=== PATIENT | male | born 1930 | race Caucasian/White ===

== ENCOUNTER 2017-01-20 13:48 | Inpatient (IN) | payer MEDICARE, BC ==
[~2017-01-20] VITALS: Ht 177.8 cm; Wt 93.6 kg
--- NOTE | ~2017-01-20 | CON ---
PATIENT'S NAME: CAL WAGNER [facility] AGE: 86 Y [address] ROOM: [address] [address] LOCATION: GICU ADMIT DATE: 01/20/2017 Consultation DISCHARGE DATE: FAMILY PHYSICIAN: PHYSICIAN, UNKNOWN ATTENDING PHYSICIAN: MAINE ENRIQUEZ DATE OF CONSULTATION: 01/20/2017 REFERRING PHYSICIAN: HEATHER FARIA REFERRING PHYSICIAN: Maine Enriquez MD REASON FOR CONSULTATION: LOPEZ on CKD, stage 4. HISTORY OF PRESENT ILLNESS: An 86-year-old gentleman with a history of hypertension; hyperlipidemia; coronary artery disease with multiple PCIs; heart failure with preserved ejection fraction; atrial fibrillation, on long-term anticoagulation; CKD, stage 4 with baseline creatinine around 3.4, currently living in a [facility] who presented to the [facility] with heart failure and shock. The patient's creatinine was found to be 6.8. For further evaluation and management, patient has been transferred to our hospital. Nephrology consultation has been called for the above-mentioned reason. As per the records from the outside facility, he has had an episode of [facility]responsiveness at the [facility]. Of note, one week ago, he has had a similar episode where he had a fall and had a head and facial injury. CT scan was unremarkable at that point. Today during his presentation at [facility], he was found to be hyperkalemic with a potassium of 5.8, and creatinine of 6.8. He was making minimal urine at that time, even after placement of Purcell catheter. However, he did not get significant amount of fluid boluses over there. He has a complex and chronic medical history as mentioned above, especially cardiac history with history of heart failure, they were reluctant to give any further fluid challenge. Before my evaluation, the patient did have an echocardiogram done which shows significant hypertrophic cardiomyopathy, LV ejection fraction is 20%, but, however, patient has predominantly RV failure. The IVC could not visualize properly due to bowel gas and so the volume status could not be determined, however, we do believe that the patient was intravascularly dehydrated, although patient noted to have at least 1 to 2+ pitting edema in the bilateral lower extremity with some evidence of bilateral lower extremity cellulitis. The patient although alert and communicative and does not complain of any headache. No chest pain or shortness of breath at this point. No cough, fever, or chills. He did mention that he was having diarrhea for the last couple of days. No orthopnea or PND. PAST MEDICAL HISTORY: 1. Hypertension. 2. Hyperlipidemia. 3. Hypothyroidism. 4. Coronary artery disease with PCI. 5. Heart failure with preserved ejection fraction. 6. Chronic kidney disease, stage 4 with creatinine in the mid 3 range.PATIENT'S NAME: CAL WAGNER [facility] AGE: 86 Y [address] ROOM: [id number] [place], [place] [address] LOCATION: [facility] ADMIT DATE: 01/20/2017 Consultation DISCHARGE DATE: FAMILY PHYSICIAN: PHYSICIAN, UNKNOWN ATTENDING PHYSICIAN: MAINE ENRIQUEZ A REVIEW OF SYSTEMS: GENERAL: No fever. No chills or rigor. HEENT: No sore throat. No sinus congestion. Had a fall a week before with some facial and head trauma. CT scan was negative. Need to be sutured, still has some black eye on the right side. CVS: No chest pain. No exertional shortness of breath. Some leg swelling. RESPIRATORY: No shortness of breath. No cough. No wheezing. GENITOURINARY: No pain with urination. No increased frequency. No nocturia. GASTROINTESTINAL: No abdominal pain. No abdominal distention. No nausea or vomiting, but has significant diarrhea for the last couple of days as mentioned in the HPI. NEUROLOGIC: No weakness. No seizures. SKIN: No rash. No itching. ALLERGIES: No seasonal allergy. No hayfever. ENDOCRINE: No heat intolerance. No cold intolerance. PSYCHIATRIC: No sadness. No crying spells. No history of panic attack. FAMILY HISTORY: Two sisters had myocardial infarction. Father had COPD. No history of kidney failure or dialysis in the family. SOCIAL HISTORY: No history of smoking, alcohol, or drug use. Currently living in a nursing with the assisted living facility. MEDICATIONS: As per the chart. PAST SURGICAL HISTORY: Multiple PCIs in the past as mentioned in the HPI. PHYSICAL EXAMINATION: VITAL SIGNS: Blood pressure is 60 to 70 over 40, heart rate in 50s, afebrile, respiratory rate 16 to 18, and saturating 94% on 3 to 4 L of oxygen on room air. Currently afebrile. GENERAL: Not in apparent distress. HEAD: Moist mucous membranes. Bilateral PERRLA. Black eye on the right side, has a facial trauma with suturing with a recent fall, EOMI. NECK: No JVD, thyromegaly, or lymphadenopathy. CVS: S1 and S2 normal, regular rate and rhythm. No murmur, rub, gallop. CHEST: Bilateral air entry equal. No wheezes or rales. ABDOMEN: Soft, nontender, nondistended. Bowel sounds present. EXTREMITIES: No cyanosis, clubbing, jaundice. 1+ pitting edema in bilateral lower extremity with some erythema and possibly stasis dermatitis versus cellulitis. MUSCULOSKELETAL: No limitation of range of motion. SKIN: No pallor, cyanosis, icterus. 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 No gross findings.PATIENT'S NAME: CAL WAGNER [facility] AGE: 86 Y [address] ROOM: [place] [address] LOCATION: [facility] ADMIT DATE: 01/20/2017 Consultation DISCHARGE DATE: FAMILY PHYSICIAN: PHYSICIAN, UNKNOWN ATTENDING PHYSICIAN: MAINE ENRIQUEZ LABORATORY DATA: Laboratory Evaluation: ABG; pH of 7.41, pCO2 of 45, pO2 of 94, and bicarbonate of 28.5. Troponin is 2.690. CBC; WBC 15.7, hemoglobin 12.9, and platelets of 153,000. Chemistry; serum sodium 121, potassium 5.3, chloride 79, bicarbonate 26, BUN 170, creatinine 6.9, glucose 104, and albumin 3.5. A1c is 7.1. INR is 3.14. Urinalysis; specific gravity of 1.010, pH of 6, leukocyte 2+, nitrite positive, protein 3+, ketone +, urobilinogen +, blood 250, wbc's 10-20, rbc's full field, epithelial cells 5-10, and a few bacteria. ASSESSMENT AND PLAN: 1. Acute kidney injury on chronic kidney disease, stage 4, possibly secondary to acute tubular necrosis with shock, however, the character of the shock is uncharacterized, possibly cardiogenic. The patient appears to be intravascularly dry. We have a detailed discussion with Cardiology and the primary care team. We will try to gently volume expand him with both crystalloids and colloid. We will give normal saline at the rate of 100 mL/h as well as we will give albumin 25% at 100 mL every 4 hourly. Once we get an adequate volume expansion, we may hit him with modest dose of diuretic with Bumex 2 mg bolus and metolazone 10, however, there is a risk for development of hypotension. We would like to see how his tubular response is with modest dose of diuretic after volume expansion. However, with significant right ventricular failure and left ventricular failure, there is very poor forward flow and it would be difficult to increase the left ventricular function and left ventricular output other than using dopamine and dobutamine to improve cardiac contractility. The patient is currently not making much urine. We will send urinalysis and urine lytes including sodium, potassium, creatinine, and osmolality. We may do a renal ultrasound to rule out any obstructive etiology, although less likely. If the patient does not make a significant amount of urine, we will probably need renal placement therapy in the next 12 to 24 hours. 2. Shock, which is uncharacterized, possibly cardiogenic, especially in the context of a very low cardiac output from both left ventricle and right ventricle, Cardiology is on board. Sepsis cannot be ruled out. The patient may have some evidence of cellulitis in the bilateral lower extremities. I will defer the management of antibiotic as per the primary team. 3. Chronic kidney disease, stage 4. Possibly from hypertensive nephrosclerosis or vascular disease along with some age-related glomerular filtration rate loss. The patient follows with Dr. Washington. Baseline creatinine in the mid 3 range. We will see the acute kidney injury at this point, and the patient will probably need some dialysis to go over the hump and may follow up with Dr. Washington in the future. 4. Hypertension. Hold all antihypertensive regimen, currently patient is significantly hypertensive and currently on dopamine and dobutamine to improve cardiac contractility as well as to support hemodynamics.PATIENT'S NAME: CAL WAGNER [facility] AGE: 86 Y [address] ROOM: [id number] [place], [place] [address] LOCATION: [facility] ADMIT DATE: 01/20/2017 Consultation DISCHARGE DATE: FAMILY PHYSICIAN: PHYSICIAN, UNKNOWN ATTENDING PHYSICIAN: MAINE ENRIQUEZ 5. Atrial fibrillation, on long-term anticoagulation with supratherapeutic INR. INR is 3.1. The patient may need dialysis catheter in the next 12 hours. Had significant amount of bleeding during the placement of triple lumen venous catheter. May need couple of FFPs to correct the INR before we put the dialysis line, and get continuous renal replacement therapy versus dialysis depending on the hemodynamic status. Thank you for allowing me to participate in this patient's care. We will closely monitor the patient's progress along with you. HEATHER FARIA MD /modl /[id number] d: 01/21/17 1308 t: 01/22/17 1620, CONSULTATION REPORT
--- NOTE | ~2017-01-20 | HP ---
PATIENT'S NAME: CAL WAGNER [facility] AGE: 86 Y [address] ROOM: [place] [address] LOCATION: GICU ADMIT DATE: 01/20/2017 History & Physical DISCHARGE DATE: FAMILY PHYSICIAN: PHYSICIAN, UNKNOWN ATTENDING PHYSICIAN: NORIS ESPINOSA DATE OF SERVICE: CHIEF COMPLAINT: Unresponsiveness. HISTORY OF PRESENT ILLNESS: An 86-year-old gentleman, resident of a Nursing Facility with a past medical history of chronic kidney disease stage 4, heart failure congestive in nature, atrial fibrillation on long-term anticoagulation, and coronary artery disease with a previous stenting, presented through the outside facility today with an episode of unresponsiveness at the [facility]. Of note, one week ago, he had a similar episode where he fell and hit his head, and had a facial trauma. A CAT scan was done at that point, which was unremarkable. Today, he was found to be hyperkalemic and was transferred here for further medical care. On my encounter here, he states that he is doing okay. He does not complain of any headache, any trouble with the eyes, any trouble swallowing, any chest pain, or any shortness of breath. He does endorse having some cough. He does not endorse having abdominal pain, but his significant other did mention he having diarrhea for last couple of days. He denied any PND, orthopnea, or leg swelling at this point. He denied any fever or chills. REVIEW OF SYSTEMS: All other systems were reviewed, and were negative except what is mentioned in the HPI. PAST MEDICAL HISTORY: Significant for 1. Chronic kidney disease, stage 4. 2. Heart failure with preserved ejection fraction. 3. Atrial fibrillation, on oral anticoagulation. 4. Hypertension. 5. Hyperlipidemia. 6. Hypothyroidism. 7. Coronary artery disease with previous stenting done in the past. FAMILY HISTORY: Two sisters had myocardial infarction. Father had COPD. SOCIAL HISTORY: PATIENT'S NAME: CAL WAGNER [facility] AGE: 86 Y [address] ROOM: [address] [address] LOCATION: GICU ADMIT DATE: 01/20/2017 History & Physical DISCHARGE DATE: FAMILY PHYSICIAN: PHYSICIAN, UNKNOWN ATTENDING PHYSICIAN: KHALID,HAMM A Never a smoker or drug abuse. MEDICATIONS: Medications are being reconciled right now. PHYSICAL EXAMINATION: VITAL SIGNS: On my encounter, his blood pressure was 68/40, heart rate was 58, afebrile, respiratory rate was 16, and saturating 94% on 3 L to 4 L of oxygen on room air. GENERAL: He was in no acute distress, alert and oriented x3, and complaining of being hungry. HEENT: Head did show right orbital bruises and recent stitches. Oropharynx showed moist mucous membranes. CARDIOVASCULAR: Showed irregular and variable S1 and normal S2. NECK: Due to neck obesity, could not estimate JVD. RESPIRATORY: No crackles were heard on physical examination. ABDOMEN: Soft, nontender, and nondistended. Bowel sounds were present. EXTREMITIES: Did reveal trace extremity edema with stasis dermatitis and could possibly be erythema of the leg as well. NEUROLOGICAL: No motor or sensory deficit was noted. PSYCHIATRIC: Normal affect, mood, and speech. LABORATORY WORKS AND DIAGNOSTIC STUDIES: CT of head from the outside facility did not show any acute findings. Labs showed a white count of 14, hemoglobin of 11, and platelets of 138. Sodium was 121, potassium was 5.8, chloride was 83, bicarb was 28, BUN was 177, and creatinine was 6.8. BNP of 2030. Troponins were 2.7. Alkaline phosphatase of 116; AST and ALT were respectively 53 and 34. ASSESSMENT: 1. Shock, undifferentiated at this time. It could be cardiogenic versus septic. Hypovolemic shock is also under consideration. 2. Hyperkalemia. 3. Hyponatremia. 4. Acute kidney injury on chronic kidney disease, stage 4. 5. Atrial fibrillation, on oral anticoagulation with INR of 3.1. 6. History of coronary artery disease and congestive heart failure, unknown ejection fraction. 7. Acute hypoxic respiratory failure. PLAN: We have admitted this patient to the Intensive Care. We have started the sepsis protocol, but without aggressive volume resuscitation. We will consider gentle and cautious hydration of this patient. Saturations will be monitored. We will get a chest x-ray and a full echocardiography to evaluate PATIENT'S NAME: CAL WAGNER [facility] AGE: 86 Y [address] ROOM: [place] [address] LOCATION: [facility] ADMIT DATE: 01/20/2017 History & Physical DISCHARGE DATE: FAMILY PHYSICIAN: PHYSICIAN, UNKNOWN ATTENDING PHYSICIAN: NORIS ESPINOSA his intravascular hemodynamics status. Cardiology consult will be placed as well for the elevated enzymes. Nephrology consultation has been made. We will repeat the potassium now. He has already been given two amps of D50 and 10 units of regular insulin. Hyponatremia will be monitored with the serial BMPs. We will hold the oral anticoagulation at this point in anticipation of a central line placement and any further procedures. I discussed the case personally with Dr. Santiago and son of the patient, Mr. Hayes in [place] over the phone. I discussed the current condition, prognosis, and answered questions and addressed concerns. I spent 90 minutes in providing care to this patient. Fifty percent of the time was spent in providing direct patient care including history and physical, limited echocardiography, as well as answering questions. The patient is full code per power of associate attorney. NORIS ESPINOSA MD KP/kendalll /[id number] D: [id number] T: [id number] HISTORY & PHYSICAL
--- NOTE | ~2017-01-20 | OR ---
PATIENT'S NAME: CAL WAGNER [facility] AGE: 86 Y [address] ROOM: [place] [address] LOCATION: GICU ADMIT DATE: 01/20/2017 OR/Procedure Report DISCHARGE DATE: FAMILY PHYSICIAN: PHYSICIAN, UNKNOWN ATTENDING PHYSICIAN: MAINE ENRIQUEZ SURGEON: Maine Enriquez MD FOUR SLIDE OPERATOR: DATE OF PROCEDURE: 01/20/2017 PROCEDURE: Arterial line placement. INDICATION: Hemodynamic monitoring, given shock. DESCRIPTION OF PROCEDURE: Informed consent was obtained from the patient's son and the patient himself. Time-out was taken and the right radial artery was selected for catheterization. The patient was prepped in sterile fashion and local anesthesia was obtained with a lidocaine 1% subdermally. Arterial needle was advanced into the radial artery with the return of the pulsatile flow. Guidewire was advanced and arterial catheter was advanced over the guidewire and needle was removed. No immediate complications were noted. MAINE ENRIQUEZ MD KP/modl /[id number] d: 01/21/17 0047 t: 01/21/17 1108, OPERATIVE SUMMARY
--- NOTE | ~2017-01-20 | CON ---
PATIENT'S NAME: CAL HEWITT [facility] AGE: 86 Y [address] ROOM: [address] [address] LOCATION: GICU ADMIT DATE: 01/20/2017 Consultation DISCHARGE DATE: FAMILY PHYSICIAN: PHYSICIAN, UNKNOWN ATTENDING PHYSICIAN: NORIS ESPINOSA DATE OF CONSULTATION: 01/20/2017 REFERRING PHYSICIAN: HEATHER FARIA Patient of Dr. Davenport. HISTORY OF PRESENT ILLNESS: Mr. Hewitt is an 86-year-old male patient who was transferred to the intensive care unit from the intermediate where he has been getting progressively less responsive over the last few days. He had a fall about 7 days back which was evaluated with a CAT scan. Again, his significant other who is with him says that he is a lot less responsive today. He was found to have a sodium in the low 120s, creatinine in the 7 range and his BUN was about 170. His potassium was significantly elevated as well at least 5.6 when he came in. This seemed to be due to fairly high doses of diuretics he has been on for congestive heart failure. The patient usually follows up with [facility] with Dr. Ibarra. He was recently hospitalized within the last month or so in [place] and was fine tuned and was sent home. I do not have any of those records. When he got here, he did have an echo done which shows that he has severe LVH of about wall thickness measuring 2.2 cm at least. There is at least moderate LV dysfunction with an ejection fraction of about 30%. The LV cavity is very small. There is no LVOT obstruction. 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 His EKG upon arrival showed a very wide-complex rhythm and he was in regular sinus rhythm at that time. His heart rate was in the 50s. He was hypotensive, and at one point, his blood pressure was down to the 60s apparently. He denies any chest pains. He is short of breath and wheezy. His chest x-ray is relatively clear. Consistent with significant RV dysfunction as well. He does have a lot of edema. He was on oxygen supplementation with the mask with reasonably good saturations. There is no history of syncope or any pauses. He does have a history of PAF in the past and has been on amiodarone as well. There is history of hyperlipidemia, hypertension, chronic systolic and diastolic congestive heart failure, history of renal artery stenosis. He does not appear as if he is diabetic. He is not a smoker at least recently. There is no prior history of GA even though he has a history of stent to one PATIENT'S NAME: CAL HEWITT [facility] AGE: 86 Y [address] ROOM: [id number] [place], [place] [address] LOCATION: [facility] ADMIT DATE: 01/20/2017 Consultation DISCHARGE DATE: FAMILY PHYSICIAN: PHYSICIAN, UNKNOWN ATTENDING PHYSICIAN: NORIS ESPINOSA of his obtuse marginals. There is history of congestive heart failure and paroxysmal atrial fibrillation. MEDICATIONS: His medications at intermediate are: 1. Amiodarone 200 mg once a day. 2. Artificial tears. 3. Aspirin 81 mg once a day. 4. Coumadin 2 mg a day. 5. Demadex . 6. Flomax. 7. Lipitor 40 mg a day. 8. Lopressor 100 mg twice a day. 9. Metolazone 5 mg once a day. 10. Potassium chloride 20 mEq once a day. 11. Synthroid 100 mcg once a day. 12. Tylenol 325 mg p.r.n. 13. Uloric 80 mg once a day. 14. Vitamin D3 2000 units a day. ALLERGIES: NO KNOWN DRUG ALLERGIES. PAST MEDICAL HISTORY: 1. Renal disease aggravated by diuretic. 2. Hypothyroidism. 3. Carpal tunnel syndrome right wrist. 4. Right ulnar neuropathy. 5. Polyneuropathy. 6. Renal artery stenosis, venous insufficiency, DJD both knees, DJD left shoulder. 7. Lumbar spinal stenosis. 8. Cognitive impairment and long-term use of anticoagulation. PAST SURGICAL HISTORY: 1. Spinal fusion L1-L5, he had a stent placed. 2. Stent placed to his OM1 in 2014 and repeat catheterization in February 2016 showed mild left nonobstructive coronary disease. SOCIAL HISTORY: The patient is . He is currently living with significant other. 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 He denies abusing alcohol. He is nonsmoker. REVIEW OF SYSTEMS: 1. Positive for generalized weakness. PATIENT'S NAME: CAL HEWITT [facility] AGE: 86 Y [address] ROOM: [place] [address] LOCATION: [facility] ADMIT DATE: 01/20/2017 Consultation DISCHARGE DATE: FAMILY PHYSICIAN: PHYSICIAN, UNKNOWN ATTENDING PHYSICIAN: NORIS ESPINOSA 2. Bruising. 3. Very weak and able to walk only very short distances putting him in functional class III-IV. 4. Nausea. PHYSICAL EXAMINATION: VITAL SIGNS: His blood pressure was in the 90s to low 100s. Initially, he was put on dopamine 2 mcg then discontinued. His heart rate is in the 60s. Respirations 22. Oxygen saturation is okay with the supplemental oxygen. HEENT: Normal. NECK: Supple with no JVD. In fact, JVD is difficult to tell. ABDOMEN: Obese, soft. CHEST: Chest examination reveals bilateral wheezing. His heart sounds are regular at this time and bradycardic with a heart rate in the 50s. EXTREMITIES: Reveal 2+ edema. ASSESSMENT: 1. Left ventricular ejection fraction of 30% with severe left ventricular hypertrophy with left ventricular wall thickness being about 2.2 cm and concentric left ventricular hypertrophy for that matter. 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 2. Congestive heart failure secondary to #1. 3. Right ventricular failure as well. 4. Paroxysmal atrial fibrillation, on Coumadin as well as on amiodarone and beta blockers. RECOMMENDATIONS: We will start him on some dopamine and dobutamine and see how he comes along. Again, I appreciate this opportunity to participate in the care of Mr. Hewitt. MD SALIMA GALLAGHER/constantine /[id number] d: 01/21/17 1235 t: 01/29/17 1030, CONSULTATION REPORT
--- NOTE | ~2017-01-20 | ECHO ---
Transthoracic Echocardiography Report (TTE) Demographics Patient Name CAL WAGNER Date of Study 01/20/2017 Patient Number [id number] Visit Number [id number] Date of 1930 Room Number G6205 Gender Male Number Age 86 year(s) Referring Zoe Melendez Mold Setter Jean Claude Hernandez RVT Physician Physician Interpreting Guillermina Hughes Ventilator Specialist Physician Supervising Ordering Zoe Melendez MD/MLP Physician MD Nurse Stress Hospitality House Supervisor Conclusions Contractility Score Summary Global Left Ventricular Hypokinesis was noted. Summary TDS. Off axis views. The estimated left ventricular ejection fraction is 25-30% with severe diffuse hypokinesia involving all LV segments. Severe concentric left ventricular hypertrophy with the wall thickness measuring 2.5 cm.The LV cavity is small with with obliteration of the apical 1/4 of the LV cavity with systole. Moderately reduced right ventricular function. Mildly dilated right ventricle. The left atrium is mildly dilated by visual assessment. Increased LA pressures. The right atrium is severely dilated. Increased RA pressures. Severe MAC. Mild mitral regurgitation by color Doppler. The aortic valve is mildly sclerotic. There is trivial aortic regurgitation by color Doppler. Trivial tricuspid regurgitation by color Doppler and the pulmonary pressures cannot be confidently commented on Possible pleural effusion. Procedure Type of Study TTE procedure:2D Echocardiogram. Procedure Date Date: 01/20/2017 Start: 05:08 PM Study Location: Inpatient Portable Technical Quality: Limited visualization Indications:Hypotension. Appropriate Use Criteria: 9 Patient Status: STAT HR: 80 bpm BP: 82/50 mmHg M-Mode/2D Measurements LV Diastolic Dimension: 2.38 cm LV Systolic Dimension: 2.04 cm LV Septum Diastolic: 2.56 cm LV PW Diastolic: 2.59 cm AO Root Dimension: 2.9 cm Cardiac Output: 2.94 l/min AV Cusp Separation: 1.4 cm LA volume: 71 ml RV Base: 3.59 cm LVOT: 2 cm RV Mid: 2.98 cm LVOT VTI: 11.7 cm RV Length: 5.67 cm LV Stroke volume: 36.74 ml TDI-S': 5.03 cm/s Doppler Measurements AV Peak Velocity: 0.72 m/s MV Peak E-Wave: 0.93 m/s AV Peak Gradient: 2.08 mmHg AV Mean Gradient: 1 mmHg MV P1/2t: 96 msec LVOT Peak Velocity: 0.64 m/s MV Mean Gradient: 1 mmHg TR Velocity:1.71 m/s TR Gradient:11.7 mmHg A' Lateral Velocity: 0.05 m/s E' Lateral Velocity: 0.03 m/s Findings Left Ventricle Severe concentric left ventricular hypertrophy.Small LV cavity .Severe diffuse hypokinesia.LVEF:25-30%. Right Ventricle Moderately reduced right ventricular function. Mildly dilated right ventricle. Left Atrium Visually mild LA dilatation. Increased LA pressures. Right Atrium The right atrium is severely dilated. Increased RA pressures. IVC not visualized due to poor subcostal window. Mitral Valve Moderate to severe mitral annular calcification. Trace mitral regurgitation by color Doppler. Aortic Valve The aortic valve is moderately sclerotic. There is trivial aortic regurgitation by color Doppler. Tricuspid Valve Mild tricuspid regurgitation by color Doppler. Pulmonic Valve The pulmonic valve is not well visualized. Pericardial Effusion No evidence of pericardial effusion. Miscellaneous Visualized portions of the aortic root and ascending aorta appear normal in size. Pleural Effusion Possible pleural effusion. Contractility Score LV regional wall motion:(0-Non visualized 1-Normal 2-Hypokinesis 3-Akinesis 4-Dyskinesis 5-Aneurysm) Signature dtt: Ellen Sarmiento dtd: 01/20/17 1708 Physician Self Edit
--- NOTE | ~2017-01-20 | OR ---
PATIENT'S NAME: CAL WAGNER [facility] AGE: 86 Y [address] ROOM: [address] [address] LOCATION: GICU ADMIT DATE: 01/20/2017 OR/Procedure Report DISCHARGE DATE: FAMILY PHYSICIAN: PHYSICIAN, UNKNOWN ATTENDING PHYSICIAN: NORIS ENRIQUEZ SURGEON: Noris Enriquez MD SKIN DIVING TEACHER: DATE OF PROCEDURE: 01/20/2017 PROCEDURE: Right IJ catheterization. INDICATIONS: Need for vasopressors and ongoing resuscitation. DESCRIPTION OF PROCEDURE: Informed consent was obtained for the patient over the phone. Risks versus benefit obtained. Right IJ was selected for catheterization. A time-out was taken. The patient was prepped in sterile fashion. Using real-time ultrasonography, right IJ was identified, and local anesthesia was obtained with 1% lidocaine. The trocar needle was used to advance in the right IJ with aspiration of the dark oozing blood. Guidewire was advanced through the needle and needle was removed. Presence of the guidewire in the IJ was confirmed using ultrasonography. Dilatation was achieved using dilator after a small kimberlee was made with #10 blade. Central line was advanced over the guidewire and guidewire was retrieved. The patient did have about 20 mL of blood loss from this procedure given his INR was high at 3.1 because he was on oral anticoagulation. Complications, postprocedurely when instruments were being checked, guidewire was noted to be missed. There was concern if the guidewire was still in the central line and that was examined with a chest x-ray. I talked to the radiologist and he does not see any guidewire on the chest x-ray. Vascular Surgery was also called in and they said it was not present on the chest x-ray and it is likely not in the patient.Abd X-ray also didn't show the presence of guidewire . Attempts were made to retrieve the guidewire in the instrument kit, but we were not able to find it. No other complications were noted of this procedure. The patient did have 10 to 20 mL of bleeding and a sandbag was placed for hemostasis because of his high INR. ADDENDUM: Missing guidewire was later found on the floor by the bedside. MD KP KWOK/constantine /[id number] d: 01/21/17 0034 t: 01/21/17 1112, OPERATIVE SUMMARY
--- NOTE | ~2017-01-20 | DS ---
PATIENT'S NAME: CAL WAGNER [facility] AGE: 86 Y [address] ROOM: [address] [address] LOCATION: GICU ADMIT DATE: 01/20/2017 Discharge Summary DISCHARGE DATE: 01/29/2017 FAMILY PHYSICIAN: Art Ford MD ATTENDING PHYSICIAN: PRINCIPAL DIAGNOSES: 1. Cardiogenic shock. 2. Acute decompensated systolic congestive heart failure. 3. Acute kidney injury on chronic kidney disease, stage 5. 4. Urinary tract infection. 5. Paroxysmal atrial fibrillation. 6. Long-term anticoagulation use. HOSPITAL COURSE: This is an 86-year-old male with known ischemic cardiomyopathy, systolic CHF, EF of 20% to 25%, presented with few days course of worsening shortness of breath and was found to be in cardiogenic shock with pulmonary edema on admission. The patient was also noted to be in renal failure with minimal urine output. Upon admission, the patient was quickly evaluated and was admitted to the ICU and was started on CVVH for 2 to 3 days upon admission with good fluid removal. The patient continued to show significant improvement in his respiratory status with removing of fluids and was subsequently able to be weaned off his cardiac support medicines which included dobutamine and dopamine. The patient appears to have a long-term need for hemodialysis going forward; but after a long discussion with family and Nephrology Team, it is decided that the patient does not wish to undergo long-term dialysis. At this point, I have up-titrated his diuretics to Bumex 3 mg b.i.d. as well as Zaroxolyn 5 mg daily, and he is going to continue to use this in the hopes that he would stay compensated volume teran. He still continues to be at high risk for readmission, however. The patient today is comfortable and in good spirits. Ambulating well without requiring supplemental oxygen. PHYSICAL EXAMINATION: GENERAL: He is alert, awake, and oriented x3. CHEST: Clear to auscultation bilaterally. HEART: S1, S2. Regular rate and rhythm. ABDOMEN: Soft, nontender, and nondistended. EXTREMITIES: Trace edema. NEUROLOGICAL: Grossly nonfocal. MEDICATIONS: Per MAR including Bumex 3 mg p.o. b.i.d., Zaroxolyn 5 mg p.o. daily, digoxin 250 mcg p.o. daily. DISPOSITION: Back to [facility] and he is to follow up with PCP within one week, and at that time renal and CBC needs to be done. PATIENT'S NAME: CAL WAGNER [facility] AGE: 86 Y [address] ROOM: [address] [address] LOCATION: GICU ADMIT DATE: 01/20/2017 Discharge Summary DISCHARGE DATE: 01/29/2017 FAMILY PHYSICIAN: Art Ford MD ATTENDING PHYSICIAN: Greater than 30 minutes were spent in discharge planning and facilitating. MD DASHA DOYLE/modl /[id number] d: 01/30/17 0214 t: 02/17/17 1522, DISCHARGE SUMMARY
[2017-01-20 16:15] LABS: HEMATOCRIT 38.5 % (33.0-50.0); HEMOGLOBIN 12.9 g/dL (11.0-16.0); MCH 28.7 pg (27.0-34.0); MCHC 33.5 gm/dL (32.0-36.5); MCV 85.7 fl (83.0-98.0); MPV 12.8 fl (9.4-12.4); PLATELET COUNT 153 K/uL (150-450); RBC 4.49 M/uL (3.50-5.50); RDW-CV 16.2 % (11.9-14.6); WBC 15.7 K/uL (4.0-11.0)
[2017-01-20 16:22] LABS: INR - (THERAPEUTIC) 3.14 (0.92-1.07); PROTIME 33.4 SECONDS (9.8-11.4); PTT 35 SECONDS (25-32)
[2017-01-20 16:36] LABS: ALBUMIN 3.5 gm/dL (3.5-5.0); CALCIUM 8.3 mg/dL (8.5-10.5); POTASSIUM 5.3 mMol/L (3.7-5.1); TOTAL BILIRUBIN 0.9 mg/dL (0.0-1.5); TOTAL PROTEIN 7.1 g/dL (6.0-8.4)
[2017-01-20 16:37] LABS: ABSOLUTE NEUTROPHIL CT (ANC) 14.1 K/uL (1.4-9.0); BANDED NEUTROPHIL # 1.3 K/uL (0.0-0.1); BANDED NEUTROPHILS % 8 %; LYMPHOCYTE # 0.6 K/uL (0.8-4.0); LYMPHOCYTE % 4 %; MONOCYTE # 0.9 K/uL (0.0-1.0); SEGMENTED NEUTROPHIL # 12.9 K/uL (1.4-9.0); SEGMENTED NEUTROPHIL % 82 %
[2017-01-20 16:38] LABS: ANION GAP 21.3 (10.0-19.0); CREATININE 6.9 mg/dL (0.6-1.3)
[2017-01-20 17:02] LABS: BICARBONATE 28.5 mmol/L (18.0-23.0); PCO2 45 mmHg (35-45); PO2 94 mmHg (80-90)
[2017-01-20 19:39] LABS: HEMATOCRIT 36.3 % (33.0-50.0); HEMOGLOBIN 12.4 g/dL (11.0-16.0); MCH 28.9 pg (27.0-34.0); MCHC 34.2 gm/dL (32.0-36.5); MCV 84.6 fl (83.0-98.0); MPV 12.5 fl (9.4-12.4); PLATELET COUNT 147 K/uL (150-450); RBC 4.29 M/uL (3.50-5.50)
[2017-01-20 19:48] LABS: ANION GAP 20.6 (10.0-19.0); CALCIUM 7.9 mg/dL (8.5-10.5); CREATININE 6.8 mg/dL (0.6-1.3)
[2017-01-20 19:49] LABS: POTASSIUM 5.6 mMol/L (3.7-5.1)
[2017-01-20 20:19] LABS: ABSOLUTE NEUTROPHIL CT (ANC) 10.1 K/uL (1.4-9.0); BANDED NEUTROPHIL # 0.7 K/uL (0.0-0.1); BANDED NEUTROPHILS % 6 %; LYMPHOCYTE # 0.1 K/uL (0.8-4.0); LYMPHOCYTE % 1 %; MONOCYTE # 0.7 K/uL (0.0-1.0); SEGMENTED NEUTROPHIL # 9.5 K/uL (1.4-9.0); SEGMENTED NEUTROPHIL % 86 %
--- NOTE | 2017-01-20 20:41 | NUR ---
A/O. PERRLA. Nunez. Arrived with hypotension treated with Levophed. Art line and R) IJ triple central line started this shift. Temps 95.9 on admit. NC on 4L. Purcell present with low UOP. Follow up: treat hypotension
[2017-01-20 21:34] LABS: BICARBONATE 27.2 mmol/L (18.0-23.0); PCO2 46 mmHg (35-45); PO2 83 mmHg (80-90)
[2017-01-20 22:08] LABS: BILIRUBIN URINE NEGATIVE (NEGATIVE); BLOOD URINE 250 /UL (NEGATIVE); COLOR URINE YELLOW (YELLOW); GLUCOSE URINE NEGATIVE (NEGATIVE); KETONE URINE 5 mg/dL (NEGATIVE); LEUKOCYTES URINE 100 /UL (NEGATIVE); NITRITE URINE POSITIVE (NEGATIVE); PROTEIN URINE 500 mg/dL (NEGATIVE); TURBIDITY URINE 3+ (CLEAR); UROBILINOGEN URINE 1 mg/dL (NORMAL)
[2017-01-20 22:16] LABS: RBC URINE FULL FIELD #/HPF (NEGATIVE)
[2017-01-20 22:17] LABS: BACTERIA URINE FEW (NEGATIVE)
[2017-01-21 01:52] LABS: ALBUMIN 3.8 gm/dL (3.5-5.0); CALCIUM 8.2 mg/dL (8.5-10.5); POTASSIUM 5.4 mMol/L (3.7-5.1)
[2017-01-21 02:04] LABS: ANION GAP 18.4 (10.0-19.0); CREATININE 6.9 mg/dL (0.6-1.3)
[2017-01-21 02:05] LABS: PHOSPHORUS 8.4 mg/dL (2.5-4.9)
[2017-01-21 03:15] LABS: BICARBONATE 27.2 mmol/L (18.0-23.0); PCO2 45 mmHg (35-45); PO2 111 mmHg (80-90)
[2017-01-21 05:07] LABS: CALCIUM 8.3 mg/dL (8.5-10.5); POTASSIUM 5.4 mMol/L (3.7-5.1)
[2017-01-21 05:09] LABS: ANION GAP 22.4 (10.0-19.0)
[2017-01-21 05:17] LABS: HEMATOCRIT 34.5 % (33.0-50.0); HEMOGLOBIN 11.5 g/dL (11.0-16.0); MCH 28.6 pg (27.0-34.0); MCHC 33.3 gm/dL (32.0-36.5); MCV 85.8 fl (83.0-98.0); MPV 12.4 fl (9.4-12.4); PLATELET COUNT 125 K/uL (150-450); RBC 4.02 M/uL (3.50-5.50); RDW-CV 15.9 % (11.9-14.6); WBC 9.9 K/uL (4.0-11.0)
[2017-01-21 05:25] LABS: INR - (THERAPEUTIC) 4.11 (0.92-1.07); PROTIME 43.8 SECONDS (9.8-11.4)
[2017-01-21 06:03] LABS: ABSOLUTE NEUTROPHIL CT (ANC) 9.2 K/uL (1.4-9.0); BANDED NEUTROPHIL # 1.1 K/uL (0.0-0.1); BANDED NEUTROPHILS % 11 %; LYMPHOCYTE # 0.1 K/uL (0.8-4.0); LYMPHOCYTE % 1 %; MONOCYTE # 0.6 K/uL (0.0-1.0); SEGMENTED NEUTROPHIL # 8.1 K/uL (1.4-9.0); SEGMENTED NEUTROPHIL % 82 %
--- NOTE | 2017-01-21 07:02 | NUR ---
Significant Event: PATIENT ALERT, ORIENTED. FOLLOWS ALL COMMANDS. AFEBRILE. HYPOTENSIVE. SON DOPAMINE GTT AND DOBUTAMINE GTT. SCHEDULED ALBUMIN. ON PARTINAL NON-REBREATHER. HEATON WITH MINIMAL OUTPUT. INCONTINENT BM X3. KAYEXELATE ENEMA X2 GIVEN FOR HIGH POTASSIUM. PIV TO RIGHT AC. RIGHT IJ TRIPLE LUMEN WITH CVP MONITORING. ARTLINE ACCIDENTALLY DC'D OVERNOC. Follow up:
[2017-01-21 08:12] LABS: ALBUMIN 4.3 gm/dL (3.5-5.0); CALCIUM 8.1 mg/dL (8.5-10.5); POTASSIUM 5.3 mMol/L (3.7-5.1)
[2017-01-21 08:39] LABS: ANION GAP 19.3 (10.0-19.0); PHOSPHORUS 8.5 mg/dL (2.5-4.9)
[2017-01-21 13:35] LABS: HEMOGLOBIN 10.2 g/dL (11.0-16.0); MCH 28.6 pg (27.0-34.0); MCHC 32.9 gm/dL (32.0-36.5); MCV 86.8 fl (83.0-98.0); PLATELET COUNT 102 K/uL (150-450); RBC 3.57 M/uL (3.50-5.50); WBC 7.1 K/uL (4.0-11.0)
[2017-01-21 13:39] LABS: PROTIME 33.4 SECONDS (9.8-11.4)
[2017-01-21 13:45] LABS: INR - (THERAPEUTIC) 3.14 (0.92-1.07)
[2017-01-21 13:46] LABS: ALBUMIN 4.3 gm/dL (3.5-5.0); CALCIUM 8.4 mg/dL (8.5-10.5); PHOSPHORUS 8.7 mg/dL (2.5-4.9); POTASSIUM 4.9 mMol/L (3.7-5.1)
--- NOTE | 2017-01-21 13:53 | NUR ---
Significant Event: Disoriented to location, state's he is in a hospital. States the month and year correctly, unsure of specific date. Pupils 3mm brisk. Equal moderate strength throughout all extremities, 3+ generalized edema. Hard of hearing. Systolic 80-100's, HR 50-70's, widened QRS. L.S. clear and diminished with expiratory wheeze in upper lobes, dimnished in lower lobes with expiratory wheeze. Beginning of shift patient was on 15L via Non-Rebreather, decreased to 6L via N.C. Unable to clear secretions, need *respiratory culture*. B.S. active, 2 small loose stools this shift after receiving Kayexalate PO. Purcell intact, bloody urine evident, anuria. PIV R) AC infusing Dextrose 10% at 75mL/hr. R) IJ infusing Dobutamine 2.5mcg/kg/min, Dopamine infusing 2mg/kg. Hourly accuchecks. Renal labs Q6Hrs, Ca, Mg, K, Q6Hrs. Turn Q2hrs. Re-orient as needed. Follow up: Plan to dialyze today after line placement.
[2017-01-21 14:05] LABS: ANION GAP 18.9 (10.0-19.0); CREATININE 7.2 mg/dL (0.6-1.3); MAGNESIUM 3.4 mg/dL (1.8-2.6)
[2017-01-21 14:25] LABS: BANDED NEUTROPHILS % 14 %; LYMPHOCYTE # 0.1 K/uL (0.8-4.0); LYMPHOCYTE % 1 %; SEGMENTED NEUTROPHIL % 71 %
[2017-01-21] MEDS ORDERED: CORDARONE,PACE200 MG PO (15:13)
[2017-01-21] MEDS ORDERED: ARTIFICIAL TEAR15 M5 OPHTH (15:15)
[2017-01-21] MEDS ORDERED: ARTIFICIALS TEA30 ML OPHTH (15:16)
[2017-01-21] MEDS ORDERED: ASPIRIN LO-DOSE81 MG PO (15:16)
[2017-01-21] MEDS ORDERED: DEMADEX20 MG PO (15:17)
[2017-01-21] MEDS ORDERED: COUMADIN ** 9/62 MG PO (15:17)
[2017-01-21] MEDS ORDERED: LIPITOR40 MG PO (15:18)
[2017-01-21] MEDS ORDERED: LOPRESSOR100 MG PO (15:18)
[2017-01-21] MEDS ORDERED: FLOMAX0.4 MG PO (15:18)
[2017-01-21] MEDS ORDERED: ZAROXOLYN5 MG PO (15:19)
[2017-01-21] MEDS ORDERED: K-TAB ER20 MEQ PO (15:19)
[2017-01-21] MEDS ORDERED: LEVOTHROID (S100 MCG PO (15:20)
[2017-01-21] MEDS ORDERED: TYLENOL325 MG PO (15:20)
[2017-01-21] MEDS ORDERED: VITAMIN D-32000 UNI1 PO (15:21)
[2017-01-21] MEDS ORDERED: ULORIC80 MG PO (15:21)
[2017-01-21] MEDS ORDERED: COLACE100 MG PO (15:22)
[2017-01-21] MEDS ORDERED: NITROSTAT0.4 MG SL (15:24)
[2017-01-21] MEDS ORDERED: ZOFRAN4 MG PO (15:25)
[2017-01-21] MEDS ORDERED: TYLENOL EXTRA500 MG PO (15:25)
[2017-01-21] MEDS ORDERED: LAC-HYDRIN FIV226 GM TOP (15:26)
[2017-01-21] MEDS ORDERED: ANUSOL-HC CREAM30 GM R (15:30)
[2017-01-21 21:17] LABS: HEMATOCRIT 31.9 % (33.0-50.0); HEMOGLOBIN 10.4 g/dL (11.0-16.0); MCH 28.3 pg (27.0-34.0); MCHC 32.6 gm/dL (32.0-36.5); MCV 86.9 fl (83.0-98.0); MPV 11.9 fl (9.4-12.4); PLATELET COUNT 97 K/uL (150-450); RBC 3.67 M/uL (3.50-5.50); RDW-CV 15.9 % (11.9-14.6); WBC 7.2 K/uL (4.0-11.0)
[2017-01-21 21:39] LABS: ALBUMIN 4.4 gm/dL (3.5-5.0); CALCIUM 8.8 mg/dL (8.5-10.5); PHOSPHORUS 6.6 mg/dL (2.5-4.9); POTASSIUM 4.5 mMol/L (3.7-5.1)
[2017-01-21 21:40] LABS: ANION GAP 17.5 (10.0-19.0); CREATININE 5.4 mg/dL (0.6-1.3); MAGNESIUM 2.9 mg/dL (1.8-2.6)
[2017-01-21 21:46] LABS: ABSOLUTE NEUTROPHIL CT (ANC) 6.3 K/uL (1.4-9.0); BANDED NEUTROPHIL # 0.5 K/uL (0.0-0.1); BANDED NEUTROPHILS % 7 %; LYMPHOCYTE # 0.1 K/uL (0.8-4.0); LYMPHOCYTE % 2 %; MONOCYTE # 0.8 K/uL (0.0-1.0); SEGMENTED NEUTROPHIL # 5.8 K/uL (1.4-9.0); SEGMENTED NEUTROPHIL % 80 %
--- NOTE | 2017-01-22 04:36 | NUR ---
Significant Event: PT CONTINUES TO BE DROWSY, DISORIENTED TO PLACE BUT REORIENTS EASILY. WEAKLY FOLLOWS COMMANDS, MOVES EXTREMITIES SPONTANEOUSLY. DENIES NUMBNESS/TINGLING. CONTINUES IN AN ACCELERATED IDIOVENTRICULAR RHYTHM RATES 70S-90S. SBP 90S-100S, MAPS 60S-80S. DOBUTAMINE CONTINUES AT 2.5 MCG/KG/MIN, DOPAMINE TITRATED DOWN TO 2 MCG/KG/MIN. HYPOTHERMIC WITH TEMPS IN 97F RANGE; BEVERLY HUGGER APPLIED. EDEMA SLIGHTLY IMPROVED THIS SHIFT. REMAINS ON NASAL CANULA AT 4LPM, LUNG SOUNDS VARIABLE WITH UPPER AIRWAY WHEEZES. STOMACH REMAINS FIRM, PASSING FLATUS, THREE SMALL BMs THIS SHIFT. HEATON WITH BLOODY OUTPUT, IRRIGATED SEVERAL TIMES THIS SHIFT TO PREVENT FROM CLOTTING OFF. TOTAL OF 20 MLs OF URINE THIS SHIFT. CRRT CONTINUES WITH GOAL OF 100 ML NET REMOVAL PER HOUR; PT TOLERATING WELL. ALL LINES REMAIN INTACT AND PATENT; IV TUBING CHANGED THIS SHIFT. Follow up: CONTINUE WITH CRRT. YUMIKO UNGER RN
[2017-01-22 05:35] LABS: ALBUMIN 4.2 gm/dL (3.5-5.0); ANION GAP 17.3 (10.0-19.0); CALCIUM 8.9 mg/dL (8.5-10.5); INR - (THERAPEUTIC) 4.52 (0.92-1.07); MAGNESIUM 2.6 mg/dL (1.8-2.6); PHOSPHORUS 5.5 mg/dL (2.5-4.9); POTASSIUM 4.3 mMol/L (3.7-5.1); PROTIME 48.2 SECONDS (9.8-11.4); TOTAL PROTEIN 6.8 g/dL (6.0-8.4)
[2017-01-22 05:38] LABS: CREATININE 4.5 mg/dL (0.6-1.3); TOTAL BILIRUBIN 1.2 mg/dL (0.0-1.5)
[2017-01-22 06:01] LABS: HEMATOCRIT 32.4 % (33.0-50.0); HEMOGLOBIN 10.5 g/dL (11.0-16.0); MCH 28.5 pg (27.0-34.0); MCHC 32.4 gm/dL (32.0-36.5); MCV 87.8 fl (83.0-98.0); PLATELET COUNT 101 K/uL (150-450); RBC 3.69 M/uL (3.50-5.50); WBC 5.9 K/uL (4.0-11.0)
[2017-01-22 06:50] LABS: ABSOLUTE NEUTROPHIL CT (ANC) 5.3 K/uL (1.4-9.0); BANDED NEUTROPHIL # 0.4 K/uL (0.0-0.1); BANDED NEUTROPHILS % 6 %; LYMPHOCYTE # 0.2 K/uL (0.8-4.0); LYMPHOCYTE % 3 %; MONOCYTE # 0.4 K/uL (0.0-1.0); SEGMENTED NEUTROPHIL % 84 %
--- NOTE | 2017-01-22 10:50 | NUR ---
A - NUTRITION F/U. PT A/O X 2. NA+ 131, GLU 61, BUN/CLINICAL RESEARCH TECH 103/4.5, ALB 4.2, PO4 5.5. NXSTAGE GOAL TO TAKE OFF 100 ML/HR. EDEMA DOWN; 2+ BUE, 1-2+ BLE. WT DOWN 13# SINCE ADMISSION; EXPECTED D/T CRRT. PT IS HUNGRY, RENAL DIET W/ 1500 ML FR INITIATED THIS AM. ENSURE OFFERED AT BF AND DINNER. D - AT RISK W/ INADEQUATE ORAL INTAKE SINCE ADMIT R/T RECENT NPO STATUS. I - GOAL: 50% OR BETTER INTAKE BY NEXT REVIEW. M/E - WILL F/U ON INTAKE IN 2-4 DAYS AND ASSIST NEEDED.
--- NOTE | 2017-01-22 13:00 | NUR ---
Introduced self and role of care management to pt's s/o Dana who is the closest one to pt but she said his son López who is the POA is coming from [facility]. SHe states pt has been declining since August and really since October and been in and out of hospitals and skilled care. At the current time he is at [facility] on skilled care. I did call Marielos at the [facility] and updated her. WIll continue to follow.
[2017-01-22 13:56] LABS: HEMATOCRIT 32.3 % (33.0-50.0); HEMOGLOBIN 10.4 g/dL (11.0-16.0); MCH 28.7 pg (27.0-34.0); MCHC 32.2 gm/dL (32.0-36.5); MPV 11.8 fl (9.4-12.4); PLATELET COUNT 93 K/uL (150-450); RBC 3.63 M/uL (3.50-5.50); RDW-CV 16.1 % (11.9-14.6); WBC 5.6 K/uL (4.0-11.0)
[2017-01-22 14:09] LABS: ALBUMIN 4.1 gm/dL (3.5-5.0); ANION GAP 14.1 (10.0-19.0); CREATININE 3.7 mg/dL (0.6-1.3); MAGNESIUM 2.5 mg/dL (1.8-2.6); PHOSPHORUS 4.7 mg/dL (2.5-4.9); POTASSIUM 4.1 mMol/L (3.7-5.1)
--- NOTE | 2017-01-22 14:18 | NUR ---
Speech Tx: Orders rec'd, chart reviewed; Pt had just been through a PICC line placement procedure and was sleeping. Pt's was present. Per discussion with RN, pt had been started on a diet but then sounded more course this morning. Pt's RN questioned silent aspiration. Upon observation of pt, and trying to arouse him, pt was unable to participate in swallowing study. Recommended that pt be NPO and MASTER COOK would evaluate swallowing when pt was more alert. An MBS may be needed to more accurately r/o aspiration and pharyngeal dysfunction. Discussed speech Tx with pt's with fair understanding and with pt's RN with good understanding. Will f/u and initiate evaluation when pt is more alert. Ariella Gardner M.A. [facility]
[2017-01-22 14:23] LABS: ABSOLUTE NEUTROPHIL CT (ANC) 4.8 K/uL (1.4-9.0); BANDED NEUTROPHIL # 0.2 K/uL (0.0-0.1); BANDED NEUTROPHILS % 3 %; LYMPHOCYTE # 0.4 K/uL (0.8-4.0); LYMPHOCYTE % 7 %; MONOCYTE # 0.4 K/uL (0.0-1.0); SEGMENTED NEUTROPHIL # 4.7 K/uL (1.4-9.0); SEGMENTED NEUTROPHIL % 83 %
[2017-01-22 14:28] LABS: INR - (THERAPEUTIC) 3.13 (0.92-1.07); PROTIME 33.2 SECONDS (9.8-11.4)
--- NOTE | 2017-01-22 17:15 | NUR ---
Significant Event:: NxtStage throughout shift. Patient total cumulative loss at this time 2195 ml. Bladder scan showed 615 ml in bladder. Urine contains blood clots. GI: Incontinent with 3 moderate bowel movements, loose. Cdiff negative. NEURO: Oriented to person and time. Drowsy. CARDIO: Dopamine at 2 mcg/kg/min, Dobutamine at 2.5 mcg/kg/min. EF 20-25%. RESP: Expiratory wheeze. Possibly silent aspiration with oral fluids. Speech to evaluate. Follow up: Start CBI. Continue NxtStage.
[2017-01-22 21:21] LABS: MCHC 31.3 gm/dL (32.0-36.5); MCV 89.6 fl (83.0-98.0); MPV 12.5 fl (9.4-12.4); PLATELET COUNT 90 K/uL (150-450); RBC 3.57 M/uL (3.50-5.50); RDW-CV 16.1 % (11.9-14.6)
[2017-01-22 21:33] LABS: ALBUMIN 3.9 gm/dL (3.5-5.0); ANION GAP 15.2 (10.0-19.0); CALCIUM 9.2 mg/dL (8.5-10.5); CREATININE 3.1 mg/dL (0.6-1.3); MAGNESIUM 2.3 mg/dL (1.8-2.6); PHOSPHORUS 3.9 mg/dL (2.5-4.9); POTASSIUM 4.2 mMol/L (3.7-5.1)
[2017-01-22 21:49] LABS: ABSOLUTE NEUTROPHIL CT (ANC) 4.9 K/uL (1.4-9.0); BANDED NEUTROPHIL # 0.1 K/uL (0.0-0.1); BANDED NEUTROPHILS % 2 %; LYMPHOCYTE # 0.2 K/uL (0.8-4.0); LYMPHOCYTE % 3 %; MONOCYTE # 0.8 K/uL (0.0-1.0); SEGMENTED NEUTROPHIL # 4.8 K/uL (1.4-9.0); SEGMENTED NEUTROPHIL % 80 %
--- NOTE | 2017-01-23 04:50 | NUR ---
Significant Event: PT DROWSY EARLY IN SHIFT, BECOMING MORE ALERT AND RESTLESS SHIFT PROGRESSED. ORIENTED TO SELF, PLACE, AND YEAR; OCCASIONALLY HAS DIFFICULTY REMEMBERING MONTH. MOVES ALL EXTREMITIES SPONTANEOUSLY BUT WEAKLY. HR 90S-100S, SBP 80S-100S, MAPS 60S. DOPAMINE WEANED OFF FOR APPROX. 3 HOURS BEFORING NEEDING TO BE RESTARTED; CURRENTLY RUNNING AT 2 MCG/KG/MIN. DOBUTAMINE CONTINUES AT 2.5 MCG/KG/MIN. OXYGEN WEANED TO 2LPN VIA NC; OCCASIONAL DESATS TO HIGH 70S WHILE ASLEEP BUT RESOLVE WITHIN 5 SECONDS OF OCCURRING. LUNGS CLEARING, OCCASIONAL WHEEZING HEARD. REMAINS NPO. CBI CONTINUES; TOTAL OF 680 ML URINE NOTED THIS SHIFT. URINE CONTINUES TO BE PINK IN COLOR. NXSTAGE CONTINUES WITHOUT ISSUE, PT TOLERATING WELL. ALL LINES REMAIN INTACT AND PATENT. Follow up: CONTINUE WITH CRRT, SPEECH EVAL IN AM TO DETERMINE DIET. YUMIKO UNGER RN
[2017-01-23 05:32] LABS: ALBUMIN 3.8 gm/dL (3.5-5.0); CREATININE 2.7 mg/dL (0.6-1.3); MAGNESIUM 2.1 mg/dL (1.8-2.6); PHOSPHORUS 2.8 mg/dL (2.5-4.9); TOTAL BILIRUBIN 1.4 mg/dL (0.0-1.5); TOTAL PROTEIN 6.4 g/dL (6.0-8.4)
[2017-01-23 05:36] LABS: HEMATOCRIT 31.3 % (33.0-50.0); HEMOGLOBIN 9.8 g/dL (11.0-16.0); MCH 28.1 pg (27.0-34.0); MCHC 31.3 gm/dL (32.0-36.5); MCV 89.7 fl (83.0-98.0); MPV 12.1 fl (9.4-12.4); PLATELET COUNT 89 K/uL (150-450); RBC 3.49 M/uL (3.50-5.50); RDW-CV 16.2 % (11.9-14.6); WBC 6.9 K/uL (4.0-11.0)
[2017-01-23 05:43] LABS: PTT 36 SECONDS (25-32)
[2017-01-23 05:44] LABS: INR - (THERAPEUTIC) 1.82 (0.92-1.07); PROTIME 19.2 SECONDS (9.8-11.4)
[2017-01-23 06:14] LABS: ABSOLUTE NEUTROPHIL CT (ANC) 5.9 K/uL (1.4-9.0); BANDED NEUTROPHIL # 0.2 K/uL (0.0-0.1); BANDED NEUTROPHILS % 3 %; SEGMENTED NEUTROPHIL # 5.7 K/uL (1.4-9.0); SEGMENTED NEUTROPHIL % 83 %
[2017-01-23 06:35] LABS: LYMPHOCYTE % 0 %
[2017-01-23 12:36] LABS: HEMATOCRIT 33.1 % (33.0-50.0); HEMOGLOBIN 10.4 g/dL (11.0-16.0); MCH 28.3 pg (27.0-34.0); MCHC 31.4 gm/dL (32.0-36.5); MCV 90.2 fl (83.0-98.0); MPV 11.7 fl (9.4-12.4); PLATELET COUNT 82 K/uL (150-450); RBC 3.67 M/uL (3.50-5.50); RDW-CV 16.2 % (11.9-14.6); WBC 6.9 K/uL (4.0-11.0)
[2017-01-23 12:48] LABS: ALBUMIN 3.8 gm/dL (3.5-5.0); ANION GAP 11.8 (10.0-19.0); CALCIUM 9.1 mg/dL (8.5-10.5); CREATININE 2.4 mg/dL (0.6-1.3); MAGNESIUM 2.1 mg/dL (1.8-2.6); POTASSIUM 3.8 mMol/L (3.7-5.1)
[2017-01-23 13:05] LABS: ABSOLUTE NEUTROPHIL CT (ANC) 5.7 K/uL (1.4-9.0); BANDED NEUTROPHIL # 0.1 K/uL (0.0-0.1); BANDED NEUTROPHILS % 2 %; LYMPHOCYTE # 0.6 K/uL (0.8-4.0); LYMPHOCYTE % 8 %; MONOCYTE # 0.6 K/uL (0.0-1.0); SEGMENTED NEUTROPHIL # 5.6 K/uL (1.4-9.0); SEGMENTED NEUTROPHIL % 81 %
--- NOTE | 2017-01-23 14:48 | NUR ---
Patient A/Ox3. PERRLA. No complaints of pain, n/t, no nausea or vomitting. Converts from SR to Afib and back throughout shift. Amiodarone gtt started for HRs in 140s. HR 90-140s. SBP 90-130, MAPs mid 60s-90s. Continues on NC at 1L with o2 sats in mid 90s. Does have apneas while asleep and quickly desats to o2 sats in mid 60s. NPO status changed to renal diet after seen by speech therapy today. Continues on CBI with slight pink UOP on low gtt setting. Phos replaced x1 today per sliding scale. Continues on Dobutamine and Dopamine gtts to keep MAPs >65. Follow up: Continue NxStage throughout weekend.
[2017-01-23 21:50] LABS: HEMOGLOBIN 9.7 g/dL (11.0-16.0); MCH 28.2 pg (27.0-34.0); MCHC 31.3 gm/dL (32.0-36.5); MCV 90.1 fl (83.0-98.0); MPV 10.6 fl (9.4-12.4); PLATELET COUNT 83 K/uL (150-450); RBC 3.44 M/uL (3.50-5.50); RDW-CV 16.2 % (11.9-14.6); WBC 6.9 K/uL (4.0-11.0)
[2017-01-23 22:04] LABS: ALBUMIN 3.1 gm/dL (3.5-5.0); ANION GAP 17.3 (10.0-19.0); CALCIUM 8.1 mg/dL (8.5-10.5); CREATININE 2.2 mg/dL (0.6-1.3); MAGNESIUM 1.9 mg/dL (1.8-2.6); PHOSPHORUS 3.3 mg/dL (2.5-4.9); POTASSIUM 3.3 mMol/L (3.7-5.1)
[2017-01-23 22:15] LABS: ABSOLUTE NEUTROPHIL CT (ANC) 6.1 K/uL (1.4-9.0); BANDED NEUTROPHIL # 0.1 K/uL (0.0-0.1); BANDED NEUTROPHILS % 1 %; LYMPHOCYTE # 0.3 K/uL (0.8-4.0); LYMPHOCYTE % 5 %; MONOCYTE # 0.3 K/uL (0.0-1.0); SEGMENTED NEUTROPHIL % 87 %
--- NOTE | 2017-01-24 05:18 | NUR ---
Significant Event: Pt has been drowsy throughout this shift. He is easily arousable. Oriented x3. Pupils are equal and reactive. Moves all extremities spontaneously and to command. Pt has been in Afib thoughout this shift with rates in the 100-130. Amio gtt running, to be turned off at 0845. Dopamine and Dobutamine gtts running to keep MAP's greater than 65. Pt on 2L of O2 via NC. CBI running at a slow rate. Next Stage dialysis running with a blood flow rate of 250, and thearapy fluids running at 2.4. 100 ML of fluid pulled per hour. New filter placed at the begining of this shift. 1 Moderate BM this shift. R) dialysis line with pigtail, and L) PICC in place. Follow up: Continue with curent plan of care.
[2017-01-24 05:25] LABS: ALBUMIN 3.7 gm/dL (3.5-5.0); ANION GAP 11.4 (10.0-19.0); CALCIUM 8.9 mg/dL (8.5-10.5); CREATININE 1.9 mg/dL (0.6-1.3); MAGNESIUM 2.1 mg/dL (1.8-2.6); POTASSIUM 3.4 mMol/L (3.7-5.1); TOTAL PROTEIN 6.7 g/dL (6.0-8.4)
[2017-01-24 05:30] LABS: HEMATOCRIT 32.7 % (33.0-50.0); HEMOGLOBIN 10.4 g/dL (11.0-16.0); MCH 28.4 pg (27.0-34.0); MCHC 31.8 gm/dL (32.0-36.5); MCV 89.3 fl (83.0-98.0); MPV 11.6 fl (9.4-12.4); PLATELET COUNT 84 K/uL (150-450); RBC 3.66 M/uL (3.50-5.50); RDW-CV 16.2 % (11.9-14.6); WBC 6.5 K/uL (4.0-11.0)
[2017-01-24 05:37] LABS: PTT 34 SECONDS (25-32)
[2017-01-24 05:38] LABS: INR - (THERAPEUTIC) 1.35 (0.92-1.07); PROTIME 14.2 SECONDS (9.8-11.4)
[2017-01-24 05:59] LABS: ABSOLUTE NEUTROPHIL CT (ANC) 5.5 K/uL (1.4-9.0); BANDED NEUTROPHIL # 0.1 K/uL (0.0-0.1); BANDED NEUTROPHILS % 1 %; LYMPHOCYTE # 0.6 K/uL (0.8-4.0); LYMPHOCYTE % 9 %; MONOCYTE # 0.4 K/uL (0.0-1.0); SEGMENTED NEUTROPHIL # 5.4 K/uL (1.4-9.0); SEGMENTED NEUTROPHIL % 83 %
[2017-01-24 13:36] LABS: HEMATOCRIT 32.2 % (33.0-50.0); HEMOGLOBIN 10.1 g/dL (11.0-16.0); MCH 28.3 pg (27.0-34.0); MCHC 31.4 gm/dL (32.0-36.5); MCV 90.2 fl (83.0-98.0); PLATELET COUNT 85 K/uL (150-450); RBC 3.57 M/uL (3.50-5.50); RDW-CV 16.2 % (11.9-14.6); WBC 7.2 K/uL (4.0-11.0)
[2017-01-24 13:53] LABS: ALBUMIN 3.5 gm/dL (3.5-5.0); ANION GAP 11.6 (10.0-19.0); CALCIUM 8.9 mg/dL (8.5-10.5); CREATININE 1.6 mg/dL (0.6-1.3); POTASSIUM 3.6 mMol/L (3.7-5.1)
[2017-01-24 13:54] LABS: PHOSPHORUS 1.2 mg/dL (2.5-4.9)
[2017-01-24 14:55] LABS: ABSOLUTE NEUTROPHIL CT (ANC) 6.6 K/uL (1.4-9.0); BANDED NEUTROPHIL # 0.2 K/uL (0.0-0.1); BANDED NEUTROPHILS % 3 %; LYMPHOCYTE # 0.3 K/uL (0.8-4.0); LYMPHOCYTE % 4 %; MONOCYTE # 0.4 K/uL (0.0-1.0); SEGMENTED NEUTROPHIL # 6.3 K/uL (1.4-9.0); SEGMENTED NEUTROPHIL % 88 %
--- NOTE | 2017-01-24 17:50 | NUR ---
Significant Event: Patient is A&O X3, forgetful at times. Follows all commands. Pupils are equal and reactive. Denies any numbness and tingling. SBP have been upper 90's-130's, MAP's 60's-80's. Patient has been in AFIB HR have been one teens-130's. Dopamine was shut off at 0750. Dobutamine is running at 2.5mcg/kg/min. Patient is on RA with o2 sats low to mid 90's. Lung sounds have been clear and diminished. NXSTAGE is running with therapy fluid at 2.4L/H, Blood flow is running at 250ml/min, net loss is 100ml/h. I had 100ml in urine. NXSTAGE clotted at 1600 was restarted at 1745. Follow up:
[2017-01-24 22:22] LABS: HEMATOCRIT 32.5 % (33.0-50.0); HEMOGLOBIN 10.4 g/dL (11.0-16.0); MCH 28.7 pg (27.0-34.0); MCV 89.5 fl (83.0-98.0); MPV 11.7 fl (9.4-12.4); PLATELET COUNT 88 K/uL (150-450); RBC 3.63 M/uL (3.50-5.50); RDW-CV 16.3 % (11.9-14.6); WBC 7.3 K/uL (4.0-11.0)
[2017-01-24 22:37] LABS: ALBUMIN 3.7 gm/dL (3.5-5.0); ANION GAP 11.7 (10.0-19.0); CREATININE 1.6 mg/dL (0.6-1.3); POTASSIUM 3.7 mMol/L (3.7-5.1)
[2017-01-24 22:55] LABS: ABSOLUTE NEUTROPHIL CT (ANC) 6.4 K/uL (1.4-9.0); BANDED NEUTROPHIL # 0.1 K/uL (0.0-0.1); BANDED NEUTROPHILS % 1 %; LYMPHOCYTE # 0.2 K/uL (0.8-4.0); LYMPHOCYTE % 3 %; MONOCYTE # 0.5 K/uL (0.0-1.0); PHOSPHORUS 1.5 mg/dL (2.5-4.9); SEGMENTED NEUTROPHIL # 6.4 K/uL (1.4-9.0); SEGMENTED NEUTROPHIL % 87 %
[2017-01-25 06:07] LABS: ALBUMIN 3.4 gm/dL (3.5-5.0); ANION GAP 9.8 (10.0-19.0); CALCIUM 9.1 mg/dL (8.5-10.5); CREATININE 1.4 mg/dL (0.6-1.3); MAGNESIUM 1.9 mg/dL (1.8-2.6); PHOSPHORUS 2.4 mg/dL (2.5-4.9); POTASSIUM 3.8 mMol/L (3.7-5.1); TOTAL BILIRUBIN 1.1 mg/dL (0.0-1.5); TOTAL PROTEIN 6.3 g/dL (6.0-8.4)
[2017-01-25 06:12] LABS: HEMATOCRIT 31.8 % (33.0-50.0); HEMOGLOBIN 10.2 g/dL (11.0-16.0); MCH 28.8 pg (27.0-34.0); MCHC 32.1 gm/dL (32.0-36.5); MCV 89.8 fl (83.0-98.0); MPV 11.6 fl (9.4-12.4); PLATELET COUNT 83 K/uL (150-450); RBC 3.54 M/uL (3.50-5.50); RDW-CV 16.6 % (11.9-14.6); WBC 6.8 K/uL (4.0-11.0)
[2017-01-25 06:19] LABS: INR - (THERAPEUTIC) 1.43 (0.92-1.07); PROTIME 15.1 SECONDS (9.8-11.4)
--- NOTE | 2017-01-25 06:34 | NUR ---
patient is a/o times 3 cooperative moves all extremities clear upper lungs sound diminished on the bases,easily will get expiratory wheezing after any activities,nc 1l/min rr=20,w1uzj=02%,abd is slightly distended,bs rare,nx-stage runs with no problems. follow up:CONTINUE TO MONITOR PATIENT'S HEMODYNAMIC AND RESPIRATORY STATUS CLOSELY.
[2017-01-25 06:44] LABS: ABSOLUTE NEUTROPHIL CT (ANC) 5.8 K/uL (1.4-9.0); BANDED NEUTROPHIL # 0.1 K/uL (0.0-0.1); BANDED NEUTROPHILS % 1 %; LYMPHOCYTE # 0.5 K/uL (0.8-4.0); LYMPHOCYTE % 7 %; MONOCYTE # 0.5 K/uL (0.0-1.0); SEGMENTED NEUTROPHIL # 5.7 K/uL (1.4-9.0); SEGMENTED NEUTROPHIL % 84 %
[2017-01-25 14:45] LABS: ALBUMIN 3.4 gm/dL (3.5-5.0); ANION GAP 13.3 (10.0-19.0); CALCIUM 8.6 mg/dL (8.5-10.5); CREATININE 1.5 mg/dL (0.6-1.3); MAGNESIUM 1.9 mg/dL (1.8-2.6); PHOSPHORUS 2.3 mg/dL (2.5-4.9); POTASSIUM 4.3 mMol/L (3.7-5.1)
--- NOTE | 2017-01-25 17:15 | NUR ---
Significant Event: Patient is A&O X3, follows all commands. Pupils are equal and reactive. Denies any numbness and tingling. SBP have been 90's-140's, MAP's 70's-one teens. Patient has been in AFIB with HR one teens-140's. Amiodarone po was increased to 400mg TID. Max temperature was 98.5. Patient is on RA during the day and goes on 1-2L at night. Lung sounds are clear and diminished. Audiable wheeze with exertion. O2 sats have been mid to upper 90's. CBI was discontinued. Purcell had 135ml out. NXSTAGE is running with blood blow of 250ml/h, fluid therapy is at 2.4L/H, net loss of 100ml/H. Plan is to stop NXSTAGE in AM (01/26/17) unless clots before then. Follow up:
[2017-01-25 22:34] LABS: ALBUMIN 3.4 gm/dL (3.5-5.0); ANION GAP 12.3 (10.0-19.0); CALCIUM 8.4 mg/dL (8.5-10.5); CREATININE 1.6 mg/dL (0.6-1.3); MAGNESIUM 1.9 mg/dL (1.8-2.6); PHOSPHORUS 3.2 mg/dL (2.5-4.9); POTASSIUM 4.3 mMol/L (3.7-5.1)
[2017-01-26 05:31] LABS: ALBUMIN 3.3 gm/dL (3.5-5.0); ANION GAP 11.1 (10.0-19.0); CALCIUM 8.5 mg/dL (8.5-10.5); CREATININE 1.6 mg/dL (0.6-1.3); POTASSIUM 4.1 mMol/L (3.7-5.1); TOTAL PROTEIN 6.2 g/dL (6.0-8.4)
[2017-01-26 05:32] LABS: TOTAL BILIRUBIN 0.8 mg/dL (0.0-1.5)
[2017-01-26 05:49] LABS: HEMATOCRIT 29.4 % (33.0-50.0); HEMOGLOBIN 9.4 g/dL (11.0-16.0); MCH 28.7 pg (27.0-34.0); MCV 89.9 fl (83.0-98.0); MPV 12.5 fl (9.4-12.4); PLATELET COUNT 81 K/uL (150-450); RBC 3.27 M/uL (3.50-5.50); RDW-CV 17.2 % (11.9-14.6)
[2017-01-26 05:56] LABS: INR - (THERAPEUTIC) 1.36 (0.92-1.07); PROTIME 14.3 SECONDS (9.8-11.4); PTT 31 SECONDS (25-32)
[2017-01-26 06:27] LABS: ABSOLUTE NEUTROPHIL CT (ANC) 6.3 K/uL (1.4-9.0); BANDED NEUTROPHIL # 0.1 K/uL (0.0-0.1); BANDED NEUTROPHILS % 2 %; LYMPHOCYTE # 0.6 K/uL (0.8-4.0); LYMPHOCYTE % 8 %; MONOCYTE # 0.1 K/uL (0.0-1.0); SEGMENTED NEUTROPHIL # 6.2 K/uL (1.4-9.0); SEGMENTED NEUTROPHIL % 88 %
--- NOTE | 2017-01-26 07:38 | NUR ---
PT CONTINUES TO IMPROVE WITH NEURO ASSESSMENT, A/O X3, NO DROWSY EPISODES FOR THIS RN. STRENGTH IMPROVING THROUGHOUT SHIFT AND ASSISTING WITH TURNS/REPOSITIONS. HR CONTINUES TO BE IN 110S-120S, SBP 90S-120S, MAPS 70S-80S. NO NEED FOR DOPAMINE THIS SHIFT. DOBUTAMINE REMAINS AT 2.5 MCG/KG/MIN. PULSES IMPROVING. AFEBRILE THIS SHIFT. REMAINS ON ROOM AIR WITH OCCASIONAL DESATS TO 80S LASTING LESS THAN 5 SECONDS WHILE SLEEPING. LUNGS CLEAR/DIM, OCCASIONAL WHEEZING WHEN LAYING SUPINE. TOLERATING PO INTAKE WELL. VERY FREQUENT BMs, APPROXIMATELY EVERY 60-90 MINUTES. UOP 122 MLs THIS SHIFT. BUTTOCKS REMAINS VERY EXCORIATED, APPLYING MIXTURE OF MOISTURE BARRIER AND SENSI-CARE TO AFFECTED AREA AFTER EACH BOWEL MOVEMENT. PATIENT REPORTS POSTIVE RESULTS AND IMPROVEDMENT HAS BEEN SEEN THROUGHOUT SHIFT BY THIS RN. YUMIKO UNGER RN
--- NOTE | 2017-01-26 11:02 | NUR ---
A - NUTRITION F/U. GLU 104, BUN/DIRECTOR TALENT 24/1.6, ALB 2.3. PT W/ 1-2+ EDEMA T/O. NXSTAGE DISCONTINUED THIS AM. CBW: 195# IS DOWN 22# SINCE ADMISSION LIKELY R/T FLUID LOSS. PT APPEARS WELL-NOURISHED DIET: RENAL W/ ENSURE BID. INTAKE 75-100%. PT DOES NOT WANT FURTHER DIALYSIS. D - PT MOVED TO NO RISK W/ CONSISTENT 75-100% INTAKE. I - GOAL: CONT CURRENT INTAKE UNTIL DISMISSAL. M/E - WILL CONT SUPPLEMENT AND ASSIST NEEDED.
--- NOTE | 2017-01-26 11:46 | NUR ---
1025 Talked with and LARON Solo about Kenyon and his need for sap bw bi developer dialysis with possible placement issues. I let them know that I would be happy to talk with family and patient about this and would update them after my visit. 1040 Stopped into Kenyon room, his son Satish and Granddaughter were both present for my visit. Let them know that LUIS CARLOS Angeline was out today so I would be following with Kenyon' cases. Talked with them about Kenyon' need for alf dialysis and how often times SNFs wouldn't be able to take if there was a transportation issue. Kenyon and family voiced understanding to this. I let them know that I would first contact [facility], where he currently lives, to see if they provide transportion to/from dialysis in either [place] or [place] or not and then we would go from there. Family was fine with this. I also shared with them that often times we had to look in other towns for SNF and dialysis chair times so staying in [place] might not work for them. They all voiced understanding and agreement to this. Explained that I had to find a dialysis chair time that worked with SNF van times and that was often hard to do so it would mean looking into whatever options might be available to them. They were once again in agreement and understanding to this. Let them know I would update them once I knew more about what [facility] would/wouldn't do and then we would go from there. Left CM name on his whiteboard for any further questions that they might have. CM to continue to follow and assist. 1150 Call to [facility], , talked with Estee. Estee tells me that looking at it right now she doesn't think they will be able to accomidate this as they don't have a van that can be tied up for that long. Let her know that this was fine. I plan on updating her if anything should change. Estee did tell me that Kenyon was on a skilled stay with them while he was there and he has used 50 skilled days thus far. He is on a bed hold as of now. Estee and I plan to update eachother as the week goes on and if he is going to have to be on dialysis sap bw bi developer, then she will talk with family about giving up his bed hold. CM to continue to follow and assist.
--- NOTE | 2017-01-26 12:41 | NUR ---
Significant Event:PT IS AAOX3. GENERALIZED WEAKNESS NOTED. NO C/O NUMBNESS OR TINGLING. NO DOUBLE OR BLURRED VISION. UP WITH 2A WALKER GB. AFIB RATES 100-120'S. DOBUTAMINE RUNNING. R) IJ DIAYSIS LINE. L) PICC. LUNG SOUNDS ARE CLEAR AND DIMINISHED WITH AUDIBLE WHEEZES NOTED AT TIMES. GAVE 4MG OF BUMEX. 1500ML FLUID REST. ACHS ACCUCHECKS. WAITING TO SEE HOW LABS LOOK TOMORROW AND THEN PATIENT AND FAMILY WILL MAKE DECISION ABOUT DIAYLSIS. Follow up:
--- NOTE | 2017-01-26 18:56 | NUR ---
Significant Event: PT A&O x3. VSS, on room air, wheezy. PT ambulates with walker, gait belt and 2 assist. Denies pain. Dobutamine remains at 2.5. L)PICC patent. Tolerating diet. Follow up:
--- NOTE | 2017-01-27 04:43 | NUR ---
Significant Event: Pt is alert and orineted x3. Forgetful at times. Pupils are equal and reactive. Moves all extremities spontaneously and to command. Ambulates with a 2 assist with a gait belt and walker. Remains on a dobutamine GTT this shift. In Afib. Maps have remained above 65. Orthostatic blood pressure completed. Pt has an audible expritory wheeze at times. Purcell cath in place with adequate urine output. Bowel sounds are active, 3 small BM's this shift. R) dialysis line with pig tail in place, and a L) tripple lumen PICC. Follow up: Continue with current plan of care.
[2017-01-27 05:30] LABS: ALBUMIN 3.4 gm/dL (3.5-5.0); ANION GAP 13.8 (10.0-19.0); CALCIUM 7.8 mg/dL (8.5-10.5); CREATININE 1.9 mg/dL (0.6-1.3); POTASSIUM 3.8 mMol/L (3.7-5.1); TOTAL BILIRUBIN 0.8 mg/dL (0.0-1.5); TOTAL PROTEIN 6.1 g/dL (6.0-8.4)
[2017-01-27 05:32] LABS: MAGNESIUM 1.8 mg/dL (1.8-2.6); PHOSPHORUS 2.9 mg/dL (2.5-4.9)
--- NOTE | 2017-01-27 12:19 | NUR ---
1020 Call from admissions that Kenyon' son was down with them asking about advanced directives and where to obtain those at. I let her know that I would follow up wikeyur Prescott' son later this morning and get that information to him. 1040 Stopped into Kenyon' room, his son and granddaughter were both present. Provided them with an advanced directive booklet and let them know to fill it out and once it was complete to phone me and I would see if someone from nursing administration could come and be a notory for them. Son was fine with this plan. I informed them that we would only do medicaly POA paperwork and no financial POA paperwork. He again voiced understanding to this. We also talked about placement re:dialysis treatment determination. Kenoyn tells me that if he can't go back to [facility] and be transported here to dialysis by the van or family that he didn't want to go to [place] or [place]. I let him know that if he wanted to do this, family would have to work it out with the SNF to make sure that family could take him no matter what the chair time for dialysis might be and then we would go from there. Per my conversation with Estee yesterday, she tells me that family wouldn't be able to transport him to and from dialysis but son Freddy tells me he talked with staff there and they told him that it would be fine. We will need to work out those details once we know if dialysis is going to be a perminant or not. I also let them know that if [facility] didn't have any open dialysis chair times, we would have to look elsewhere for him to go which could me moving SNFs. Kenyon was pretty clear that he did not want to go this route, so we made a decision to talk about that at a later time once dialysis needs were known. Satish Prescott and silvestre were going to work on finishing the advanced directive booklet and then get back to me. 1130 VM from daughter that advanced directive booklet was done and they were ready for a notory. 1135 Called to nursing administration, talked with Liliana, she tells me that Soraida will probably be the one to do it, but she is in a meeting so she will leave a note for her to call me back if/when she can do it for family this afternoon. CM to continue to follow and assist.
--- NOTE | 2017-01-27 16:25 | NUR ---
A/O x3. No pain, n/t. HR mid 90s-100s. SBP 100-110, MAPs 70-90. Afebrile. Dobutamine gtt stopped today. Continues on RA with o2 sats in mid-upper 90s. Continues with glass catheter with good UOP. Bumex scheduled BID. Follow up: status change
--- NOTE | 2017-01-28 05:15 | NUR ---
Significant Event: Pt is alert and orineted x3. Pupils are equal and reactive. Moves all extreities spontaneously and to command. Ambulates with a 1-2 assist with G/W. Dobutamine has remained off thoughout this shift. On RA. Purcell cath in place with adequate urine output. Bowl sounds active, 2 moderate BM's this shift. L) PICC in place. Follow up: Continue with current plan of care.
[2017-01-28 07:21] LABS: INR - (THERAPEUTIC) 1.26 (0.92-1.07); PROTIME 13.3 SECONDS (9.8-11.4)
[2017-01-28 07:28] LABS: ALBUMIN 3.2 gm/dL (3.5-5.0); ANION GAP 13.6 (10.0-19.0); CALCIUM 7.7 mg/dL (8.5-10.5); CREATININE 2.2 mg/dL (0.6-1.3); PHOSPHORUS 2.9 mg/dL (2.5-4.9); POTASSIUM 3.6 mMol/L (3.7-5.1); TOTAL BILIRUBIN 0.7 mg/dL (0.0-1.5)
--- NOTE | 2017-01-28 11:26 | NUR ---
Update from morning rounds was that Kenyon' dialysis line had been pulled and he wouldn't need to be dismissed on dialysis. Called and updated Estee at [facility] to this, she is happy to review a faxed update to make sure that they can accept back and meet his needs. I gathered information and faxed it over to her, . I then met with Kenyon, his son and granddaughter who were all at bedside. Shared with them that I had updated Estee at [facility] and would wait for her to get back to me on if they would be for sure able to accept Kenyon back. Son states he would be fine transporting him back to SNF when doctors ok'd him to do so. I also let him know that I would try to get Deon in nursing specialist. to see if she would be able to come down today to do the advanced directives with them. Granddaughter also said that they were handed a PULST form to fill out with riki Alba, so they would like to do that as well. Left the room and called to nursing specialist, talked with Soraida, she says she will be up at 1300 to notorize for them. Also phoned Anjali who states she will be up around 1230 to do the PULST form with them as well. Updated son and granddaughter to this, there were fine with this plan. Will continue to follow and assist. Plan return back to SNF in the next few days with family to transport.
--- NOTE | 2017-01-28 14:17 | NUR ---
Occupational Therapy Note: OT attempted OT eval and tx however pt on hold in a.m. and p.m. per RN. OT will check back tomorrow as appropriate. Thank you, Reanna Marie, OTR/L
--- NOTE | 2017-01-28 20:01 | NUR ---
Significant Event:A/O X 3. [place], Forgetful. HR in 80's, SBP 100's-120's. Ambulates in gaytan with 2 assist, with gait belt and wheeled walker. Up in recliner and up to commode, with 1 assist. Reports no pain. Remains on room air. Tolerating renal diet. BM x 3 lori. SMall BM this afternoon, per bedside commode. Multiple skin issues. L) arm oozes, serosang drainage, soaked 2 chucks today. Family and patient requested a POLST form, completed and on the chart. Carolina Jon here for palliative care. Started on Coumadin this evening. Bumex increased to 3 mg. IV meds converted to PO. Follow up:Stopped SubQ Heparin and will start new med in AM. Plans to go back to [facility] on dismissal.
--- NOTE | 2017-01-29 04:51 | NUR ---
Significant Event: PATIENT IS A/O, DENIES PAIN, NUMBNESS OR TINGLING. FOLLOWS COMMANDS X4 EXTREMETIES. PERRLA. L) TRIPLE LUMEN PICC FLUSHES WELL, DRSG CDI. BS X4, SEVERAL SMALL LOOSE STOOLS THIS SHIFT. HEATON PATENT DRAINING CLEAR YELLOW. LS CLEAR, SPO2 >90% ON RA. Follow up: TRANSFER TO [facility]
[2017-01-29 07:44] LABS: INR - (THERAPEUTIC) 1.2 (0.92-1.07); PROTIME 12.6 SECONDS (9.8-11.4)
[2017-01-29 07:50] LABS: ALBUMIN 3.3 gm/dL (3.5-5.0); ANION GAP 13.6 (10.0-19.0); CALCIUM 7.9 mg/dL (8.5-10.5); CREATININE 2.2 mg/dL (0.6-1.3); POTASSIUM 3.6 mMol/L (3.7-5.1); TOTAL BILIRUBIN 0.7 mg/dL (0.0-1.5); TOTAL PROTEIN 6.5 g/dL (6.0-8.4)
[2017-01-29 10:51] LABS: HEMATOCRIT 30.4 % (33.0-50.0); HEMOGLOBIN 9.4 g/dL (11.0-16.0); MCH 27.8 pg (27.0-34.0); MCHC 30.9 gm/dL (32.0-36.5); MCV 89.9 fl (83.0-98.0); MPV 11.1 fl (9.4-12.4); PLATELET COUNT 151 K/uL (150-450); RBC 3.38 M/uL (3.50-5.50); RDW-CV 18.2 % (11.9-14.6); WBC 8.2 K/uL (4.0-11.0)
--- NOTE | 2017-01-29 11:00 | NUR ---
Talked with nurse Germania this morning, Kenyon is anxious to get back home and if we can get his IV Abxs switched over to orals, he might be able to go back today. Phoned [facility], left a VM with Estee. I later got a phone call back from Radha, social studies teacher, who tells me that they can take him back today as long as we get the IV Abxs changed to orals and they can get him back before 1500. Let her know that we would see what says and go from there. I talked with who states that he will be around soon to do orders on Kenyon to get back to SNF today. Family will transport him when he is cleared to go. RN to RN number [phone], was given to LARON Solo to call in report. Dismissal orders were faxed over to SNF prior to Kenyon leaving, . Packet started, orders printed, no ID Screen needed as he is a return admission. Talked with son, Freddy, he says that or his granddaughter will take him back at 1300 today. Phoned over to SNF, talked with Radha, updated her that orders were done and were faxed over to her and that Kenyon would be coming back to them this afternoon. She was fine with this. No other questions, needs or concerns. CM to continue to follow and assist. Plan return to [facility] today.
[2017-01-29 11:27] LABS: ABSOLUTE NEUTROPHIL CT (ANC) 7.6 K/uL (1.4-9.0); BANDED NEUTROPHIL # 0.8 K/uL (0.0-0.1); BANDED NEUTROPHILS % 10 %; LYMPHOCYTE # 0.3 K/uL (0.8-4.0); LYMPHOCYTE % 4 %; MONOCYTE # 0.2 K/uL (0.0-1.0); SEGMENTED NEUTROPHIL # 6.8 K/uL (1.4-9.0); SEGMENTED NEUTROPHIL % 83 %
--- NOTE | 2017-01-29 12:17 | NUR ---
PATIENT IS 86 YEAR OLD MALE WHO WAS ADMITED ON THE 4TH FROM [facility]. HE WAS HYPOTENSIVE AND ON DOPAMINE AND DOBUTAMINE, WELL HAVING NEXT STAGE DIAYLSIS FOR A PERIOD OF TIME. PATIENT HAS SINCE IMPROVED AND IS DOING WELL. HE IS AAOX3. CAN OCCASIONALLY BE FORGETFUL. DOES NOT MAKE ATTEMPTS TO GET UP OUT OF BED. LUNG SOUNDS ARE CLEAR AND DIMINISHED. LAST BM EARLY THIS AM. HEATON REMOVED AT 1210. SCROTUM IS EDEMATOUS. REMOVED PICC LINE IN LEFT UPPER ARM AT 1215. HAS SKIN TEAR TO R) UPPER ARM WITH DRSG. ALONG WITH LEFT FOOT DRSG. UP 1-2A PIVOT. SON TO TRANSFER BACK TO [facility].
== END 2017-01-29 12:57 | DRG 682 ==
LOC: GICU 14:31
PROVIDERS: Internal Medicine; Internal Medicine Cardiovascular Disease; Internal Medicine Interventional Cardiology; Internal Medicine Nephrology; ADMIT Internal Medicine
DX: N17.0 Acute kidney failure with tubular necrosis (principal); R57.0 Cardiogenic shock; J96.01 Acute respiratory failure with hypoxia; I50.23 Acute on chronic systolic (congestive) heart failure; I42.5 Other restrictive cardiomyopathy; I95.9 Hypotension, unspecified; D69.6 Thrombocytopenia, unspecified; I13.0 Hypertensive heart and chronic kidney disease with heart failure and stage 1 through stage 4 chronic kidney disease, or unspecified chronic kidney disease; E87.1 Hypo-osmolality and hyponatremia; N39.0 Urinary tract infection, site not specified; I42.2 Other hypertrophic cardiomyopathy; I50.42 Chronic combined systolic (congestive) and diastolic (congestive) heart failure; E86.0 Dehydration; N18.4 Chronic kidney disease, stage 4 (severe); Z66 Do not resuscitate; I25.10 Atherosclerotic heart disease of native coronary artery without angina pectoris; E87.5 Hyperkalemia; E78.5 Hyperlipidemia, unspecified; E03.9 Hypothyroidism, unspecified; N17.9 Acute kidney failure, unspecified; N18.5 Chronic kidney disease, stage 5; I48.0 Paroxysmal atrial fibrillation; G62.9 Polyneuropathy, unspecified; I70.1 Atherosclerosis of renal artery; I87.2 Venous insufficiency (chronic) (peripheral); M17.0 Bilateral primary osteoarthritis of knee; M19.012 Primary osteoarthritis, left shoulder; Z79.01 Long term (current) use of anticoagulants; Z98.1 Arthrodesis status; Z82.49 Family history of ischemic heart disease and other diseases of the circulatory system; Z95.5 Presence of coronary angioplasty implant and graft; Z79.82 Long term (current) use of aspirin
CPT/HCPCS: A4725; C1751; C1887; C9113; J0282; J0696; J1160; J1250; J1265; J1644; J1652; J2020; J2370; J2543; J3475; J3480; J7030; J7040; J7050; J7060; P9017; P9047